=== PATIENT | male | born 1995 | race Caucasian/White ===

== ENCOUNTER 2025-06-20 16:05 | Emergency (ER) | payer BC ==
[2025-06-20] MEDS ORDERED: Sodium Chloride 0.9% 2.5 ML Syringe FLUSH PRN (16:45)
[2025-06-20] MEDS ORDERED: Sodium Chloride 0.9% 10 ML Syringe FLUSH PRN (16:45)
[2025-06-20] MEDS: Lactated Ringers 1,000 ML IV SCH (17:06)
[2025-06-20] MEDS: Ondansetron 4 MG/2 ML SDV IVPUSH ONE (17:09)
[2025-06-20 17:13] LABS: MEAN PLATELET VOLUME 9.3 fL (9.4-12.4); NRBC ABSOLUTE 0.02 K/uL (0.00-0.02); NRBC PERCENT 0.1 /100WBC (0.0-0.2); PLATELET COUNT,PLT 444 K/uL (150-400); RED BLOOD CELL COUNT 2.87 M/uL (4.52-5.90)
[2025-06-20 17:18] LABS: WHITE BLOOD CELL COUNT,WBC 38.95 K/uL (3.9-11.3)
[2025-06-20 17:39] LABS: APPEARANCE,URINE CLOUDY; GLUCOSE,URINE NEGATIVE (NEGATIVE); OCCULT BLOOD,URINE TRACE-INTACT (NEGATIVE)
[2025-06-20 17:46] LABS: EPITHELIAL CELLS,URINE FEW (NONE-FEW)
[2025-06-20 17:52] LABS: BAND ABSOLUTE MAN 0.00; BAND PERCENT MAN 0 %; BASOPHILS ABSOLUTE MAN 0.00 K/uL (0.00-0.20); BASOPHILS PERCENT MAN 0 % (0-1); EOSINOPHILS ABSOLUTE MAN 0.00 K/uL (0.00-0.45); EOSINOPHILS PERCENT MAN 0 % (0-6); LYMPHOCYTES ABSOLUTE MAN 0.39 K/uL (1.00-4.80); LYMPHOCYTES PERCENT MAN 1 % (24-44); MONOCYTES ABSOLUTE MAN 3.12 K/uL (0.00-0.80); MONOCYTES PERCENT MAN 8 % (0-8); SEG NEUTROPHILS ABSOLUTE MAN 35.44 K/uL (1.80-7.70); SEG NEUTROPHILS PERCENT MAN 91 % (41-71)
[2025-06-20 18:09] LABS: LACTIC ACID 6.0 mmol/L (0.4-2.0)
[2025-06-20 18:32] LABS: A/G RATIO 0.5 (0.9-1.6); ALANINE AMINOTRANSFERASE,ALT 10.0 IU/L (14-63); ASPARTATE AMNIOTRANSFERASE,AST 35.0 IU/L (15-37); BILIRUBIN TOTAL 0.7 mg/dL (0.2-1.0); BLOOD UREA NITROGEN,BUN 25.0 mg/dL (7.0-18.0); CARBON DIOXIDE,CO2 23.3 mmol/L (21.0-32.0); CHLORIDE,CL 89.0 mmol/L (98-107); CREATININE 1.3 mg/dL (0.8-1.3); EST CRCL DRUG DOSING (CG) 93.05 mL/min; GLUCOSE RANDOM 101.0 mg/dL (74-106); POTASSIUM,K 4.3 mmol/L (3.5-5.1); PROTEIN TOTAL,TP 8.2 g/dL (6.4-8.2); SODIUM,NA 130.0 mmol/L (136-148)
[2025-06-20 18:39] LABS: ESTIMATED GFR 75.0 mL/min (>60)
[2025-06-20] MEDS: Lactated Ringers 1,000 ML IV ONE (18:50)
[2025-06-20] MEDS: cefTRIAXone 2 GM in Water For Injection, Sterile 20 ML IVPUSH ONE (18:52)
[2025-06-20] MEDS: Iopamidol 755 MG/ML 500 ML Multipack Bottle IVPUSH ONE (19:46)
== END 2025-06-20 21:30 | disposition left against medical advice (07) ==
LOC: MW.ED 16:05
DX: A41.9 Sepsis, unspecified organism (principal); D72.829 Elevated white blood cell count, unspecified; C76.2 Malignant neoplasm of abdomen; C79.82 Secondary malignant neoplasm of genital organs; K56.609 Unspecified intestinal obstruction, unspecified as to partial versus complete obstruction; Z91.048 Other nonmedicinal substance allergy status; Z79.899 Other long term (current) drug therapy
CPT/HCPCS: 36415; 71045; 74177; 80053; 81001; 83605; 85025; 87040; 87086; 87088; 87186; 96361; 96374; 96375; 99284; A4216; A9270; J0696; J1642; J2405; J7120; Q9967; 99283